=== PATIENT | male | born 1945 | race Caucasian/White ===

== ENCOUNTER 2017-03-17 09:43 | Emergency (ER) | payer MEDICARE, OTHER ==
--- NOTE | 2017-03-17 09:55 | ERNOTE ---
Medical Problem HPI - General Time Seen by Provider: 03/17/17 09:44 Source: patient Exam Limitations: no limitations - Immun/Allergies/Home Medications Allergies/Adverse Reactions: Allergies No Known Allergies Allergy (Unverified 03/17/17 10:02) Home Medications: HOME MEDICATIONS Atorvastatin Calcium 40 mg PO DAILY 03/17/17 [Last Taken Unknown] Benazepril/Hydrochlorothiazide [Benazepril-Hctz 20-25 mg Tab] 1 each PO DAILY [Last Taken Unknown] Carvedilol [Coreg] 3.125 mg PO BID 03/17/17 [Last Taken Unknown] Diclofenac Sodium [Voltaren] 50 mg PO BID 03/17/17 [Last Taken Unknown] Famotidine 20 mg PO BID 03/17/17 [Last Taken Unknown] HYDROcodone/ACETAMINOPHEN [Hydrocodon-Acetaminophen 5-325] 1 each PO BID PRN 11/28 [Last Taken Unknown] Tramadol HCl [Rybix Odt] 50 mg PO HS 03/17/17 [Last Taken Unknown] - History of Present History Narrative: Patient woke up this morning and went to the restroom at 8:45 AM at which time he noticed significant weakness of his left arm and right-sided occipital headache and blurry vision. Subsequently EMS was notified and patient was brought in via ambulance to our ER. Review of Systems - Review of Systems Constitutional: Present: no symptoms reported, other - patient complains of right-sided occipital headache in the area behind his right ear EYE: Present: blurred vision - patient reports blurry vision out of his left eye since 8:45 AM ENT: Present: no symptoms reported Respiratory: Present: no symptoms reported Cardiology: Present: no symptoms reported Gastrointestinal/Abdominal: Present: no symptoms reported Genitourinary: Present: no symptoms reported Musculoskeletal: Present: See HPI Neurological: Present: See HPI - Family History Mother Family History - Medical: Father Family History - Medical: Family History - Cancer: Lung Physical Exam - Physical Exam General Appearance: Present: wd/wn, alert Head Exam: Present: normal inspection, no evidence of injury Eye Exam: Normal inspection: bilateral, PERRL: bilateral, EOMI: bilateral Ears, Nose, Throat: Present: normal ENT inspection Neck: Present: normal inspection, nontender, supple Respiratory: Present: no respiratory distress, normal breath sounds, no accessory muscle use, chest nontender, lungs clear Cardiovascular/Chest: Present: regular rate, rhythm, no murmur, normal peripheral pulses Gastrointestinal/Abdominal: Present: normal bowel sounds, nontender, nondistended, soft Extremity Exam: Present: normal inspection, other - patient has initially significant weakness in the left house registry rn however he is able to hold up his left arm for 10 seconds. On repeat examination patient's left house registry rn is stronger after 10 minutes of being in the emergency room Neurological Exam: Present: alert, oriented, normal mood/affect, other - no abnormal facies are noted patient's speech is not slurred and even. Pupils are equal round and reactive to light and accommodation ocular movements are intact is no bruit upon examination of the neck and auscultation of the neck patient initially does have weakness of the left grasp however his left house registry rn is stronger 10 minutes after arrival patient has slight weakness in his left leg upon plantar flexion this is quantified as slightly weaker on the left side than on the right side during the examination he complains of blurriness of the left eye and headache in the right occipital and periauricular areas of is head ED Progress - Date and Time Seen: Date and Time: 03/17/17 10:09 On repeat examination patient's left grasp is just as strong as the right grasp and lower extremity weakness upon plantar flexion has resolved however the patient continues to close his eyes as opening his eyes causes dizziness and still complains of right-sided occipital headache. He feels nauseated for Zofran was administered 4 mg IV. - Results and Orders Patient's Lab Results:: I have reviewed the patient's lab results. - Vital Signs Patient's Vital Signs:: I have reviewed the patient's vital signs. - CT/Ultrasound CT/Ultrasound Narrative: CT of the head was read by the radiologist as age indeterminate right lacunar infarct. No acute bleed noted at this time Plan - Plan Plan: This is a 71-year-old gentleman with neurological findings and deficits on the left side which has since improved as he has been in our ER. His symptoms remain right occipital headache and dizziness for which the patient keeps his eyes closed his left grasp has improved so has the weakness on his left lower extremity. At this time Dr. Hwang at [facility] stroke team was consulted and the decision was made to start IV TPA on this patient. Patient will be transferred to the [facility] via air transport patient is stable and appropriate for transport at this time. Departure - Departure Clinical Impression: Acute CVA (cerebrovascular accident) Disposition: [facility] Condition: Serious
[2017-03-17] MEDS ORDERED: ONDANSETRON HCL/PF 2 MG/ML VIAL ONE (10:02)
[2017-03-17] MEDS ORDERED: ONDANSETRON HCL/PF 2 MG/ML VIAL IV ONE (10:04)
[2017-03-17 10:12] LABS: Hematocrit 41.8 % (42.0-52.0); Hemoglobin 14.6 gm/dL (13.5-18.0); Mean Cell Volume 96.1 fl (78-100); Mean Corpuscular Hemoglobin 33.6 pg (27-31); Mean Corpuscular Hgb Conc 34.9 g/dl (32-36); Mean Platelet Volume 10.1 fl (6.0-9.5); Neutrophil % 54.4 % (42-75.0); Platelet Count 212 K/mm3 (150-450); Red Blood Count 4.35 M/mm3 (4.7-6.0); Red Cell Distribution Width 13.4 % (11.5-14.0); White Blood Count 5.6 K/mm3 (4.0-10.5)
[2017-03-17 10:18] VITALS: BP 133/82
[2017-03-17] MEDS ORDERED: ALTEPLASE 1 MG UNIT IV ONE (10:20)
[2017-03-17] MEDS ORDERED: ALTEPLASE 100 MG VIAL IV ONE ×2 (10:20→10:31)
[2017-03-17 10:22] LABS: Prothrombin Time (Patient) 10.1 Seconds (9.4-11.4)
[2017-03-17 10:23] LABS: INR 0.97 INR (0.90-1.10); Partial Thrombolplastin Time 25.6 Seconds (24-32)
[2017-03-17] MEDS ORDERED: ALTEPLASE 100 MG in WATER FOR INJECTION,STERILE 100 ML IV STA (10:25)
[2017-03-17 10:29] LABS: Albumin * 3.5 gm/dl (3.4-5.0); Anion Gap 10.7 mmol/L (6.8-13.8); BUN/Creatinine Ratio 14.2 (9.0-21.6); Bilirubin, Total 0.7 mg/dL (0.0-1.1); Ca. Corrected For Albumin 8.5 mg/dL (8.4-10.2); Calcium * 8.4 mg/dL (7.9-10.9); Carbon Dioxide 29.2 mmol/L (24-32.6); Potassium 3.9 mmol/L (3.4-4.6); Total Protein 6.5 gm/dL (6.2-8.2)
== END 2017-03-17 10:54 | disposition short-term general hospital (02) ==
LOC: ER 09:43
DX: I63.8 Other cerebral infarction (principal)
CPT/HCPCS: 36415; 70450; 71010; 80053; 85025; 85610; 85652; 85730; 93005; 96365; 96375; 99291; 99292; J2405; J2997